=== PATIENT | male | born 1970 | race Caucasian/White ===

== ENCOUNTER 2024-10-17 13:53 | Outpatient (REF) | payer MEDICAID, SELFPAY ==
--- OUTSIDE RECORDS SUMMARY | 2024-10-17 14:27 | XMS_ITS | Clinical Summary ---
Author Organization [facility] Address [address] [place] [address] Care Team Providers Care Fixed Income Analyst Name Role Phone Marques Merchant LAST SORTER Primary Care Provider +1- [phone] Allergies No known active allergies Medications Medication Sig Dispensed Refills Start Date End Date Status vitamin D3 (cholecalciferol) 10 MCG (400 UNIT) tablet Take by mouth daily. 0 Active tamsulosin (FLOMAX) 0.4 MG CAPS Take 1 capsule (0.4 mg total) by mouth daily. 0 Active omeprazole (PriLOSEC) 20 MG capsule Take 1 capsule (20 mg total) by mouth daily. 0 Active Active Problems No known active problems Social History Tobacco Use Types Packs/Day Years Used Date Smoking Tobacco: Former Cigarettes Smokeless Tobacco: Never Tobacco Cessation:Counseling Given: Not Answered Alcohol Use Standard Drinks/Week Comments Not Currently 0 (1 standard drink = 0.6 oz pur e alcohol) Sex and Gender Information Value Date Recorded Sex Assigned at Male 07/22/2022 9:54 AM EDT Gender Identity Not on file Sexual Orientation Not on file Job Start Date Occupation Industry Not on file Not on file Not on file Last Filed Vital Signs Vital Sign Reading Time Taken Comments Blood Pressure 129/59 10/01/2023 10:40 AM EDT Pulse 56 10/01/2023 10:40 AM EDT Temperature 36.7 C (98.1 F) 10/01/2023 10:40 AM EDT Respiratory Rate - - Oxygen Saturation 100% 10/01/2023 10: 40 AM EDT Inhaled Oxygen Concentration - - Weight 104.2 kg (229 lb 12.8 oz) 2023 10:40 AM EDT Height 195.6 cm (6' 5 ) 10/01/2023 10:4 0 AM EDT Body Mass Index 27.25 10/01/2023 10:40 AM EDT Plan of Treatment Health Maintenance Due Date Last Done Comments Hepatitis B Vaccines (1 of 3 - 3-dose series) 1969 Hepatitis C Screening 1969 COVID-19 Vaccine (#1) 1969 Depression Screening 1981 Preventative Health Evaluation 1987 DTap / Tdap / Td (1 - Tdap) 1988 Colon Cancer Screening (Colonoscopy) 2014 Shingrix-Zoster Vaccine (1 of 2) 2019 Influenza Vaccine (Season Ended) 2024 Pneumococcal Vaccine Aged Out No long er eligible based on patient's age to complete this topic RSV Ped < 20 months Aged Out No longe r eligible based on patient's age to complete this topic Care Teams Fixed Income Analyst Relationship Specialty Start Date End Date Marques Merchant NP [address] [facility] [place] [address] PCP - General Nurse Practitioner 10/01/23
--- OUTSIDE RECORDS SUMMARY | 2024-10-17 14:27 | XMS_ITS | Encounter Summary ---
Author Organization [facility] Address [id number] [place] [id number] Care Team Providers Care Tester Wafer Substrate Name Role Phone Marques Merchant CINDER BLOCK MAKER Primary Care Provider [phone]- [phone] Encounter Details Date Type Department Care Team (Late Contact Info) Description 08/15/2024 Lab Requisition [facility] - Main Lab [address] [facility] [place] [phone] Marques Merchant, ANSHUL [address] [place] [address] Hereditary hemochromatosis (CMS/HCC V24); Overweight; Hypothyroidism, unspecified; Vitamin D deficiency, unspecified Social History Tobacco Use Types Packs/Day Years Used Date Smoking Tobacco: Former Smokeless Tobacco: Never Alcohol Use Standard Drinks/Week Comments Not Currently 0 (1 standard drink = 0.6 oz pur e alcohol) Sex and Gender Information Value Date Recorded Sex Assigned at Not on file Legal Sex Male 8:44 PM EST Gender Identity Not on file Sexual Orientation Not on file documented as of this encounter Plan of Treatment Upcoming Encounters Date Type Department Care Team (Late st Contact Info) Description 09/27/2025 8:45 AM EDT Office Visit [facility] Hematology Oncology [address] [place] [phone] Loulou Mosher MD [address] [place] [address] documented as of this encounter Procedures Procedure Name Priority Date/Time Associated Diagnosis Comments THYROID STIMULATING HORMONE WITH REFLEX TO FREE T4 AND FREE T3 Routine 08/15/2024 10:30 AM EDT Hereditary hemochromatosis ([facility]/HCC V24) Overweight Hypothyroidism, unspecified Vitamin D deficiency, unspecified SST - GOLD Routine 08/15/2024 10:30 AM EDT Hereditary hemochromatosis ([facility]/HCC V24) Overweight Hypothyroidism, unspecified Vitamin D deficiency, unspecified CBC WITH AUTO DIFFERENTIAL Routine 08/15/2024 10:30 AM EDT Hereditary hemochromatosis (CMS/HCC V24) Overweight Hypothyroidism, unspecified Vitamin D deficiency, unspecified VITAMIN D 25 HYDROXY Routine 08/15/2024 10:30 AM EDT Hereditary hemochromatosis ([facility]/HCC V24) Overweight Hypothyroidism, unspecified Vitamin D deficiency, unspecified CBC AND DIFFERENTIAL Routine 08/15/2024 10:30 AM EDT Hereditary hemochromatosis ([facility]/HCC V24) Overweight Hypothyroidism, unspecified Vitamin D deficiency, unspecified HEMOGLOBIN A1C Routine 08/15/2024 10:30 AM EDT Hereditary hemochromatosis ([facility]/HCC V24) Overweight Hypothyroidism, unspecified Vitamin D deficiency, unspecified COMPREHENSIVE METABOLIC PANEL Routine 08/15/2024 10:30 AM EDT Hereditary hemochromatosis ([facility]/HCC V24) Overweight Hypothyroidism, unspecified Vitamin D deficiency, unspecified documented in this encounter Results * SST tube (08/15/2024 10:30 AM EDT) Extra Tube Hold for add-ons. 08/15/2024 7:01 PM EDT [facility] Comment:Auto resulted. Blood Venous blood specimen / Unknown 08/15/2024 10:30 AM EDT 08/15/2024 5:12 PM EDT Eddikirill Merchant CINDER BLOCK MAKER LAB BLOOD ORDERABLES Final Result [facility] [address] [place] [address], * (ABNORMAL) CBC auto differential (08/15/2024 10:30 AM EDT) [facility] WBC 4.5(L) 4.8 - 10.8 K/mcL LAB [facility]EM[facility]OLOG[facility] RBC 4.50 4.50 - 5.50 M/mcL LAB HEMETOLOGY METHOD [facility] Hemoglobin 14.7 13.5 - 17.5 g/dL LAB HEMETOLOGY METHOD 08/15/2024 6:04 PM [facility] Hematocrit 43.9 42.0 - 54.0 % LAB HEMETOLOGY METHOD 08/15/2024 6:04 PM [facility] MCV 96.7 79.0 - 98.0 FL LAB HEMETOLOGY METHOD [facility]24 [facility] MCH 32.4(H) 27.0 - 32.0 pcg LAB HEMETOLOGY METHOD 08/15/2024 6:04 PM [facility] MCHC 33.5 32.0 - 37.0 g/dL LAB HEMETOLOGY METHOD 08/15/2024 6:04 PM [facility] RDW 12.5 11.0 - 15.0 % LAB HEMETOLOGY METHOD 08/15/2024 6:04 PM [facility] Platelets 187 130 - 400 K/mcL LAB HEMETOLOGY METHOD [facility] MPV 11.6(H) 7.0 - 11.0 FL LAB HEMETOLOGY METHOD 08/15[facility]2024 6[facility] NRBC 0.0 <1.0 % LAB HEMETOLOGY METHOD 08/15/2024 6:04 PM [facility] NRBC Absolute 0.00 <0.10 K/mcL LAB HEMETOLOGY METHOD 08/15/2024 6:04 PM [facility] Neutrophils Relative 67.0 % LAB HEMETOLOGY METHOD 08/15/2024 6:04 PM [facility] Lymphocytes Relative 20.5 % LAB HEMETOLOGY METHOD 08/15/2024 6:04 PM [facility] Monocytes Relative 8.3 % LAB HEMETOLOGY METHOD 08/15/2024 6:04 PM [facility] Eosinophils Relative 3.1 % LAB HEMETOLOGY METHOD 08/15/2024 6:04 PM [facility] Basophils Relative 0.9 % LAB HEMETOLOGY METHOD 08/15/2024 6:04 PM [facility] Immature Granulocytes Relative 0.2 % LAB HEMETOLOGY METHOD 08/15/2024 6:04 PM [facility] Neutrophils Absolute 3.00 1.50 - 7.00 K/mcL LAB HEMETOLOGY METHOD 08/15/2024 6:04 PM [facility] Lymphocytes Absolute 0.92(L) 1.00 - 5.00 K/mcL LAB HEMETOLOGY METHOD 08/15/2024 6:04 PM [facility] Monocytes Absolute 0.37 0.20 - 1.00 K/mcL LAB HEMETOLOGY METHOD 08/15/2024 6:04 PM [facility] Eosinophils Absolute 0.14 0.00 - 0.50 K/mcL LAB HEMETOLOGY METHOD 08/15/2024 6:04 PM [facility] Basophils Absolute 0.04 0.00 - 0.20 K/mcL LAB HEMETOLOGY METHOD 08/15/2024 6:04 PM [facility] Immature Granulocytes Absolute 0.01 0.00 - 0.03 K/mcL LAB HEMETOLOGY METHOD 08/15/2024 6:04 PM EDT [facility] Blood Venous blood specimen / Unknown 08/15/2024 10:30 AM EDT 08/15/2024 5:12 PM EDT [facility] CINDER BLOCK MAKER LAB BLOOD ORDERABLES Final Result Performing Organization Address City/[facility]/ZIP Co de Phone Number [facility] [address] [place] [address], [place] [phone] * Vitamin D 25 hydroxy (08/15/2024 10:30 AM EDT) Vit D, 25-Hydroxy 46.5 30.0 - 80.0 ng/mL LAB CHEMISTRY METHOD 08/15/2024 8:55 PM EDT [facility] Blood Venous blood specimen / Unknown 08/15/2024 10:30 AM EDT 08/15/2024 5:12 PM EDT Ayovaughnkirill Javiergabriel LAB BLOOD ORDERABLES Final Result Performing Organization Address [facility] Co de Phone Number [facility] [address] [place] [address], [place] [phone] * Thyroid stimulating hormone with reflex to free t4 and free t3 (08/15/2024 10:30 AM EDT) TSH 2.15 0.40 - 4.00 mcIU/mL LAB CHEMISTRY METHOD 08/15/2024 8:55 PM EDT [facility] Blood Venous blood specimen / Unknown 08/15/2024 10:30 AM EDT 08/15/2024 5:12 PM EDT Marques Javieran CINDER BLOCK MAKER LAB BLOOD ORDERABLES Final Result [facility] [address] [place] [address], * Hemoglobin A1c (08/15/2024 10:30 AM EDT) [facility] Hemoglobin A1C 4.7 <6.5 % LAB CHEMISTRY METHOD 08/15/2024 11:29 PM EDT [facility] Mean Bld Glu Estim. 88 mg/dL LAB CHEMISTRY METHOD 08/15/2024 11:29 PM EDT [facility] Blood Venous blood specimen / Unknown 08/15/2024 10:30 AM EDT 08/15/2024 5:12 PM EDT Marques Merchant NP LAB BLOOD ORDERABLES Final Result Performing Organization Address [facility]/State/ZIP Co de Phone Number [facility] [address] [place] [address], * Comprehensive metabolic panel (08/15/2024 10:30 AM EDT) [facility] Sodium 140 133 - 145 mmol/L LAB CHEMISTRY METHOD 08/15/2024 8:40 PM [facility] Potassium 4.9 3.5 - 5.5 mmol/L LAB CHEMISTRY METHOD 08/15/2024 8:40 PM [facility] Chloride 105 96 - 110 mmol/L LAB CHEMISTRY METHOD 08/15/2024 8:40 PM T [facility] CO2 30 21 - 32 mmol/L LAB CHEMISTRY METHOD 08/15/2024 8:40 PM [facility] Anion Gap 5 3 - 11 LAB CHEMISTRY METHOD 08/15/2024 8:40 PM [facility] Glucose 88 70 - 100 mg/dL LAB CHEMISTRY METHOD 08/15/2024 8:40 PM [facility] BUN 13 5 - 25 mg/dL LAB CHEMISTRY METHOD 08/15/2024 8:40 PM [facility] Creatinine 0.79 0.70 - 1.30 mg/dL LAB CHEMISTRY METHOD 08/15/2024 8:40 PM [facility] eGFR 105 >=60 mL/min/1. 73m2 LAB CHEMISTRY METHOD 08/15/2024 8:40 PM [facility] Comment:Calculation based on the Chronic Kidney Disease Epidemiology Collaboration (CKD-EPI) equation refit without adjustment for race. BUN/Creatinine Ratio 16.5 LAB CHEMISTRY METHOD 08/15/2024 8:40 PM [facility] Calcium 9.0 8.5 - 10.5 mg/dL LAB CHEMISTRY METHOD 08/15/2024 8:40 PM [facility] AST (SGOT) 23 10 - 42 unit/L LAB CHEMISTRY METHOD 08/15/2024 8:40 PM [facility] ALT (SGPT) 35 10 - 60 unit/L LAB CHEMISTRY METHOD 08/15/2024 8:40 PM [facility] Alkaline Phosphatase 88 42 - 121 unit/L LAB CHEMISTRY METHOD 08/15/2024 8:40 PM [facility] Total Protein 6.9 6.0 - 8.0 g/dL LAB CHEMISTRY METHOD 08/15/2024 8:40 PM [facility] Albumin 3.9 3.2 - 5.0 g/dL LAB CHEMISTRY METHOD 08/15/2024 8:40 PM [facility] Total Bilirubin 1.0 0.0 - 1.4 mg/dL LAB CHEMISTRY METHOD 08/15/2024 8:40 PM [facility] Blood Venous blood specimen / Unknown 08/15/2024 10:30 AM EDT 08/15/2024 5:12 PM EDT Marques Merchant NP LAB BLOOD ORDERABLES Final Result [facility] [address] [place] [address], documented in this encounter Visit Diagnoses Diagnosis Hereditary hemochromatosis (CMS/HCC V24) Hereditary hemochromatosis Overweight Hypothyroidism, unspecified Vitamin D deficiency, unspecified documented in this encounter Care Teams Tester Wafer Substrate Relationship Specialty Start Date End Date Marques Merchant NP [address] [place] [address] PCP - General 10/01/23 documented as of this encounter
--- OUTSIDE RECORDS SUMMARY | 2024-10-17 14:27 | XMS_ITS | Patient Health Record ---
Author Organization [facility] Address [address] [place] [id number] Care Team Providers Care Physician Specialist Name Role Phone Marques Merchant Primary Care Provider [phone] Allergies No Known Allergies Results Component Value Reference Range Notes COMPREHENSIVE METABOLIC PANE L Reviewed date:08/16/2024 09:24:42 AM Interpretation:Normal Performing Lab: Notes/Report: Sodium 140 133-145 mmol/L Potassium 4.9 3.5-5.5 mmol/L Chloride 105 96-110 mmol/L CO2 30 21-32 mmol/L Anion Gap 5 3-11 Glucose 88 70-100 mg/dL BUN 13 5-25 mg/dL Creatinine 0.79 0.70-1.30 mg/dL eGFR 105 >=60 mL/min/1.73m2 Calculati on based on the Chronic Kidney Disease Epidemiology Collaboration (CKD-EPI) equation refit without adjustment for race. BUN/Creatinine Ratio 16.5 Calcium 9.0 8.5-10.5 mg/dL AST (SGOT) 23 10-42 unit/L ALT (SGPT) 35 10-60 unit/L Alkaline Phosphatase 88 42-121 unit/L Total Protein 6.9 6.0-8.0 g/dL Albumin 3.9 3.2-5.0 g/dL Total Bilirubin 1.0 0.0-1.4 mg/dL CBC WITH AUTO DIFFERENTIAL Reviewed date:08/16/2024 09:26:26 AM Interpretation:Abnormal Performing Lab: Notes/Report: WBC 4.5 4.8-10.8 K/mcL RBC 4.50 4.50-5.50 M/mcL Hemoglobin 14.7 13.5-17.5 g/dL Hematocrit 43.9 42.0-54.0 % MCV 96.7 79.0-98.0 FL MCH 32.4 27.0-32.0 pcg MCHC 33.5 32.0-37.0 g/dL RDW 12.5 11.0-15.0 % Platelets 187 130-400 K/mcL MPV 11.6 7.0-11.0 FL NRBC 0.0 <1.0 % NRBC Absolute 0.00 <0.10 K/mcL Neutrophils Relative 67.0 Lymphocytes Relative 20.5 Monocytes Relative 8.3 Eosinophils Relative 3.1 Basophils Relative 0.9 Immature Granulocytes Relative 0.2 Neutrophils Absolute 3.00 1.50-7.00 K/mcL Lymphocytes Absolute 0.92 1.00-5.00 K/mcL Monocytes Absolute 0.37 0.20-1.00 K/mcL Eosinophils Absolute 0.14 0.00-0.50 K/mcL Basophils Absolute 0.04 0.00-0.20 K/mcL Immature Granulocytes Absolute 0.01 0.00-0.03 K/mcL THYROID STIMULATING HORMONE WITH REFLEX TO FREE T4 AND FREE T3 Reviewed date:08/16/2024 09:24:28 AM Interpretation:Normal Performing Lab: Notes/Report: TSH 2.15 0.40-4.00 mcIU/mL HEMOGLOBIN A1C Reviewed date:08/16/2024 09:24:22 AM Interpretation:Normal Performing Lab: Notes/Report: Hemoglobin A1C 4.7 <6.5 % Mean Bld Glu Estim. 88 VITAMIN D 25 HYDROXY Reviewed date:08/16/2024 09:24:36 AM Interpretation:Normal Performing Lab: Notes/Report: Vit D, 25-Hydroxy 46.5 30.0-80.0 ng/mL Reason For Referral Reason Jia, [facility], [facility] [address] [facility] P: [phone] F: needs assistance for personal care 2 hours daily and medication administration once a week Diagnosis 1 Persons encountering health services in other specified circumstances (Z76.89) Referral Organization [facility] Referring Provider First Name Marques Referring Provider Last Name Mayur Referring Provider Speciality Nurse Prac titioner Referred Provider [facility] Notes Samanta Arrington 06/2024 10:35:02 AM > Faxed to [facility] [place] 04/22/2024 01:50:28 PM > they accepted patient Referral Priority Routine Medications Medication SIG (Take, Route, Frequency, Duration) Notes Start Date End Date Status docusate sodium 100 mg 1 cap(s) orally 2 times a day PRN Not-Taking CeleBREX 200 mg 1 cap(s) orally once a day Active ibuprofen 400 mg 1 tab(s) orally every 8 hours as needed for pain As needed Active Vitamin D3 25 mcg 1 cap(s) orally once a day for 90 days Active acetaminophen 500 mg 1-2 tab(s) orally every 6 hours for 30 days As needed Active oxyCODONE 5 mg 1 tab(s) orally ever y 6 hours PRN Not-Taking traMADol 50 mg 1 tab(s) orally ever y 6 hours PRN Not-Taking omeprazole 20 mg 1 cap(s) orally once a day Active aspirin 325 mg 1 tab(s) orally bid Active finasteride 5 mg 1 tab(s) orally at bedtime Active Flomax 0.4 mg 1 cap(s) orally Twic e a day Active Immunizations Vaccine Route Administration Date Status Comme nts Moderna Covid-19 Vaccine Administration - First Dose (Single Dose 100MCG/0.5ML 1ST) IM Intramuscular 05/14/2020 Administered Moderna Covid-19 Vaccine Administration - Second Dose (Single Dose 100 MCG/0.5ML 2ND) IM Intramuscular 06/11/2020 Administered Moderna Covid-19 Booster Administration - Third Dose (Single Dose 50 mcg/0.25 mL IM Intramuscular 04/10/2021 Administered Moderna Covid-19 Booster Administration - Third Dose (Single Dose 50 mcg/0.25 mL IM Intramuscular 08/15/2021 Administered Moderna Covid-19 Booster Administration - Third Dose (Single Dose 50 mcg/0.25 mL IM Intramuscular 02/13/2022 Administered Shingrix (Zoster) Unknown 06/03/2023 Administered Social History Tobacco Use: Social History Observation Description Date Details (start date - stop date) Former Smoker NA - NA Sex Assigned At : Social History Observation Description Sex Assigned At Male Tobacco Use Assessment MU Question Answer Notes What is your current smoking status? 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 1st Phlebotomy was was 10/28/2018 2nd phlebotomy was 02/05/2019 3rd phlebotomy was 06/14/2020 Problem Gastro-esophageal reflux disease without esophagitis (618129197) Gastro-esophageal reflux disease without esophagitis (K21.9) Active confirmed Problem Osteoarthritis of knee (733451406) Bilateral primary osteoarthritis of knee (M17.0) Active confirmed Problem Artificial knee joint present (357339346620) Presence of left artificial knee joint (Z96.652) Active confirmed 10/2022 - left TKR Problem Lower urinary tract symptoms due to benign prostatic hypertrophy (78390479653560) Benign prostatic hyperplasia with lower urinary tract symptoms (N40.1) Active confirmed Problem Body mass index 25-29 - overweight (434927360) Body mass index [BMI] 28.0-28.9, adult (Z68.28) Active confirmed Problem Sheltered homelessness (480751610617172) Sheltered homelessness (Z59.01) Active confirmed Problem Anemia (476251889) Anemia, unspecified (D64.9) Inactive confirmed Problem Osteoarthritis of knee (967052938) Unilateral primary osteoarthritis, left knee (M17.12) Inactive confirmed Problem Body mass index 25-29 - overweight (933824222) Body mass index [BMI] 26.0-26.9, adult (Z68.26) Inactive confirmed Problem Body mass index 25-29 - overweight (319305006) Body mass index [BMI] 27.0-27.9, adult (Z68.27) Inactive confirmed Vital Signs Temperature 96.9 degrees Fahrenheit 08/15/2024 Oximetry 99 08/15/2024 Blood pressure diastolic 68 08/15/2024 Height 77 in 08/15/2024 Blood pressure systolic 119 08/15/2024 Weight 237.4 lbs 08/15/2024 BMI 28.15 kg/m2 08/15/2024 Encounters Encounter Location Date Provider Diagnosis [address] [id number] 01/06/2024 Eddieliza Casionan Encounter for screening for COVID-19 Z11.52 ; Bilateral primary osteoarthritis of knee M17.0 and Presence of left artificial knee joint Z96.[address] [id number] 08/15/2024 Eddieliza Casionan Encounter for screening for COVID-19 Z11.52 ; Encounter for general adult medical examination with abnormal findings Z00.01 ; Vitamin D deficiency, unspecified E55.9 ; Benign prostatic hyperplasia with lower urinary tract symptoms N40.1 ; Hypothyroidism, unspecified E03.9 ; Sheltered homelessness Z59.01 ; Gastro-esophageal reflux disease without esophagitis K21.9 ; Hereditary hemochromatosis E83.110 ; Overweight E66.3 ; Body mass index [BMI] 28.0-28.9, adult Z68.28 and Bilateral primary osteoarthritis of knee M17.0 [facility] [address] [place] [address] [facility] [place] [id number] 08/29/2024 Eddieliza Casionan Vitamin D deficiency, unspecified E55.9 ; Bilateral primary osteoarthritis of knee M17.0 and Person consulting for explanation of examination or test findings Z71.[address] [id number] 10/30/2023 Eddieliza Casionan [address] [id number] 01/22/2024 Eddieliza Casionan [address] [id number] 04/21/2024 Eddieliza Casionan Persons encountering health services in other specified circumstances Z76.[address] [id number] 05/16/2024 Eddieliza Casionan [address] [id number] 05/16/2024 Eddieliza Casionan [address] [id number] 05/18/2024 Eddieliza Casionan [address] [id number] 07/12/2024 Eddieliza Danielionan [id number] [place], [place] [id number] 09/14/2024 Eddieliza Danielionan [address] [id number] 09/15/2024 Eddieliza Danielionan [address] [id number] 10/08/2024 Marques Merchant Assessments Encounter Date Diagnosis (ICD Code) Assessment Notes Treatment Notes Treatment Clinical Notes Section Notes 01/06/2024 Bilateral primary osteoarthritis of knee (ICD-10 - M17.0) He is already engaged with [facility] and will be having 2nd steroid shot for right knee next month 01/06/2024 Encounter for screening for COVID-19 (ICD-10 - Z11.52) Covid screening is negative. Discussed in detail with patient how to practice social distancing by avoiding public spaces and crowds now, wearing a mask in public to keep nose and mouth covered, and washing hands frequently especially before eating and after using the bathroom. Return to clinic if you develop any symptoms of concern to be rescreened or go to the emergency room if you are having concerning symptoms for COVID-19. 08/15/2024 Encounter for general adult medical examination with abnormal findings (ICD-10 - Z00.01) Annual PE performed.General recommendation for good health made: brush/floss your teeth 2x per day. Eat a healthy diet and obtain 30 minutes of aerobic exercise 5/7 days per week. Maintain high in take of water and avoid soda and energy drinks. Get 8 hours of sleep every night. 08/15/2024 Encounter for screening for COVID-19 (ICD-10 - Z11.52) Covid screening is negative. Discussed in detail with patient how to practice social distancing by avoiding public spaces and crowds now, wearing a mask in public to keep nose and mouth covered, and washing hands frequently especially before eating and after using the bathroom. Return to clinic if you develop any symptoms of concern to be rescreened or go to the emergency room if you are having concerning symptoms for COVID-19. 08/29/2024 Vitamin D deficiency, unspecified (ICD-10 - E55.9) Encouraged morning sunshine exposure at least 20 minutes daily. 08/29/2024 Bilateral primary osteoarthritis of knee (ICD-10 - M17.0) Appears to be doing well after surgery 04/21/2024 Persons encountering health services in other specified circumstances (ICD-10 - Z76.89) 01/06/2024 Presence of left artificial knee joint (ICD-10 - Z96.652) He is happy with the result of the surgery 08/15/2024 Vitamin D deficiency, unspecified (ICD-10 - E55.9) Encouraged morning sunshine exposure at least 20 minutes daily. 08/29/2024 Person consulting for explanation of examination or test findings (ICD-10 - Z71.2) Reviewed results of recent diagnostic testing with client. Future plan of action discussed with from results of diagnostic testing. 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 1st Phlebotomy was was 10/28/2018 2nd phlebotomy was 02/05/2019 3rd phlebotomy was 06/14/2020 Engaged with hematology 08/15/2024 Overweight (ICD-10 - E66.3) Engaged discussion on maintaining healthy lifestyle: healthy diet low on fats and simple carbohydrates, and regular physical exercise of at least 30 minutes daily 08/15/2024 Body mass index [BMI] 28.0-28.9, adult (ICD-10 - Z68.28) Engaged discussion on maintaining healthy lifestyle: healthy diet low on fats and simple carbohydrates, and regular physical exercise of at least 30 minutes daily 08/15/2024 Bilateral primary osteoarthritis of knee (ICD-10 - M17.0) For right knee arthroplasty this week 01/06/2024 Other 08/15/2024 Other Lab work drawn as ordered, per protocol using aseptic technique. Client will be notified of all lab values within two weeks, Client agrees with plan, allowed to clarify questions about plan. 08/29/2024 Other Time spent in visit: 8 minutes 04/21/2024 Other Plan Of Treatment Pending Test Test Name Order Date CBC 08/15/2024 COMPREHENSIVE METABOLIC PANEL 08/15/2024 GLYCOHEMOGLOBIN PROFILE 08/15/2024 THYROID PROFILE 08/10/2023 THYROID PROFILE 08/15/2024 VITAMIN D, 25-HYDROXY 08/15/2024 Next Appt Details Provider Name:Marques casiano, 08/17/2025 10:00:00 AM, [address] [place] [address], [phone], Insurance Providers Payer Name Payer Address Payer Phone Subscriber Number Group Number Insured Name Patient Relationship to Insured Coverage Start Date Coverage End Date [place] Medicaid C3 [address] [place], [place] [id number] Tom Lipscomb Self - patient is the insured 3 Medical (General) History Medical History History ICD Code Enlarged prostate, urinary frequency Hemochromatosis Arthritis pain L knee (past debridement) , hip Hx ETOH use Acid reflux, hx bacteria in stomach Surgical History Surgery Date(Month/Year) Left knee arthroplasty - total 09/2022 L knee debridement 2010
== END 2024-10-17 13:54 | disposition home or self-care (01) ==
LOC: HO.BBR 13:53
PROVIDERS: PCP Nurse Practitioner; Visit Provider Internal Medicine
DX: Z13.89 Encounter for screening for other disorder (principal)